=== PATIENT | male | born 1995 | race Caucasian/White ===

== ENCOUNTER 2017-04-14 15:51 | Emergency (ER) | payer MEDICAID ==
[~2017-04-14] VITALS: Ht 180.3 cm; Wt 72.6 kg
[2017-04-14 15:56] VITALS: BP 122/71; PULSE 101; RESP 16; TEMP 98.2; O2SAT 95
[2017-04-14] MEDS ORDERED: DEXAMETHASONE SOD PHOSPHATE 10 MG/ML VIAL IVP ONE (16:15)
[2017-04-14] MEDS ORDERED: DEXAMETHASONE SOD PHOSPHATE 10 MG/ML VIAL IM ONE (16:15)
[2017-04-14] MEDS ORDERED: PENICILLIN G BENZATHINE 1.2 MMU/2 ML SYR IM ONE (16:15)
[2017-04-14] MEDS ORDERED: KETOROLAC TROMETHAMINE 60 MG/2 ML VIAL IM ONE (16:15)
== END 2017-04-14 16:51 | disposition home or self-care (01) ==
LOC: SED 15:51
DX: J03.90 Acute tonsillitis, unspecified (principal)
CPT/HCPCS: 96372; 99284; J0561; J1100; J1885

== ENCOUNTER 2017-06-28 02:05 | Emergency (ER) | payer MEDICAID ==
[~2017-06-28] VITALS: Ht 180.3 cm; Wt 79.4 kg
[2017-06-28 02:08] VITALS: BP_SYST 143
--- NOTE | 2017-06-28 02:08 | NUR ---
Patient to ER bed 6 to gown for evaluation. Side rails up. Report given to DULCE HARRELL.
--- NOTE | 2017-06-28 02:14 | NUR ---
Note elidia in ED - 06/28/17 at 0216 by JENNIFER Placed in room 06 . Placed on gambling monitor, blood pressure machine and pulse oximeter. To gown for exam. Side rails up. Report given to DULCE Méndez.
--- NOTE | 2017-06-28 02:21 | NUR ---
Patient to ED for evaluation of left great toe pain/swelling/and redness x 1 week. Patient reports that he jammed his foot into a refridgerator while at work. Patient rates pain of 3 at rest, and 9 when walking. No other complaints, patient ambulates with slow, steady gait. Friend at bedside. Will continue to observe and assess.
--- NOTE | 2017-06-28 02:21 | NUR ---
Dr Horvath at bedside to evaluate patient.
--- NOTE | 2017-06-28 02:32 | NUR ---
Patient wanting to delay procedure by 20 minutes to wait for his mother, ok per Dr Horvath. Supplies gathered, and placed at bedside.
[2017-06-28] MEDS ORDERED: LIDOCAINE 2%, 20 ML MDV ONE (02:42)
--- NOTE | 2017-06-28 02:46 | NUR ---
Patient does not wish to proceed with medical care recommended by Dr. Horvath. Patient given information related to possible complications, up to and including , which could occur as a result of leaving hospital at this time. Patient verbalizes understanding of risks involved leaving against medical advice. Patient has signed AMA form.
== END 2017-06-28 02:51 | disposition left against medical advice (07) ==
LOC: SED 02:05
DX: L60.0 Ingrowing nail (principal); L03.031 Cellulitis of right toe
CPT/HCPCS: 99281; J2001